=== PATIENT | male | born 1985 | race Hispanic/Latino ===

== ENCOUNTER 2022-08-18 12:55 | Outpatient (CLI) | payer BC | END 2022-08-18 12:56 | disposition home or self-care (01) | LOC: SCSMRI 12:55 | PROVIDERS: ATTEND Orthopaedic Surgery | DX: S29.011A Strain of muscle and tendon of front wall of thorax, initial encounter (principal); M75.101 Unspecified rotator cuff tear or rupture of right shoulder, not specified as traumatic ==